=== PATIENT | female | born 1985 | race African-American/Black ===

== ENCOUNTER 2017-12-06 12:14 | Inpatient (IN) | payer MEDICAID, OTHER ==
[~2017-12-06] VITALS: Ht 160 cm; Wt 64.0 kg
[~2017-12-06 12:14] MED LIST: CEPH500C3 PO
--- NOTE | 2017-12-06 12:43 | HHI.HP ---
HPI Chief Complaint Sent from Clinic for Demise Date Seen: Dec 06, 2017 Travel History International Travel<30 Days: No Contact w/Intl Traveler<30Days: No History of Present Illness HPI Ms. Chanel is a 32 y/o presenting at 19 weeks by LMP for possible demise. Patient was receiving medical care from Aretha Coker with an uncomplicated until this week. She states that she had an in office ultrasound that showed no activity on 12/05/17 and measurements consistent with a 16 week fetus. She was then encouraged to present to the OB floor for further management. She denies any activity, vaginal bleeding, trauma, or loss of fluid. She also denies any fevers, chills, SOB, chest pain, NVD, ABD pain, edema, calf tenderness or any other type of pain. She does state that over the last week she has been fighting a cold, but otherwise has no issues. Weeks Gestation: 24 Para: 5 : 8 History Past Medical History Medical History: Denies Significant Hx Obstetric History Obstetric History -1st = elective D&C at <12 weeks gestation -2nd = uncomplicated full term -3rd = elective D&C at <12 weeks gestation -4th - 7th pregnancies = uncomplicated full term -8th = reports has been uncomplicated thus far Family History Narrative Family History -Mother: HTN, DM -Father: No reported MHx -Children: No MHx reported Social History Alcohol Use: No Tobacco Use: No Substance Abuse: No Allergies-Medications (Allergen,Severity, Reaction): Coded Allergies: No Known Allergies (Verified Allergy, Unknown, 12/06/17) Home Meds Active Scripts Cephalexin (Keflex) 500 Mg Cap, 500 MG PO Q6, #28 CAP Prov:Manas Chaparro MD 07/03/15 Review of Systems Except as stated in HPI: all other systems reviewed are Neg (Per HPI) Physical Exam Narrative GENERAL: Well-nourished, well-developed patient. SKIN: Warm and dry. HEAD: Normocephalic and atraumatic. EYES: No scleral icterus. No injection or drainage. ENT: No nasal drainage noted. Mucous membranes pink. Airway patent. NECK: Supple, trachea midline. No JVD. CARDIOVASCULAR: Regular rate and rhythm without murmurs, gallops, or rubs. RESPIRATORY: Breath sounds equal bilaterally. No accessory muscle use. ABDOMEN/GI: Abdomen soft, non-tender, bowel sounds present, no rebound, no guarding Gravid to 16 weeks size FHT's: No HT appreciated on bedside US EXTREMITIES: No cyanosis or edema. BACK: Nontender without obvious deformity. No CVA tenderness. NEUROLOGICAL: Awake and alert. Motor and sensory grossly within normal limits. Five out of 5 muscle strength in all muscle groups. Normal speech. Caprini VTE Risk Assessment Caprini VTE Risk Assessment: Mod/High Risk (score >= 2) Caprini Risk Assessment Model Point Value = 1 Point Value = 2 Point Value = 3 Point Value = 5 Age 41-60 Minor surgery BMI > 25 kg/m2 Swollen legs Varicose veins or History of unexplained or recurrent spontaneous Oral contraceptives or hormone replacement Sepsis (< 1 month) Serious lung disease, including pneumonia (< 1 month) Abnormal pulmonary function Acute myocardial infarction Congestive heart failure (< 1 month) History of inflammatory bowel disease Medical patient at bed rest Age 61-74 Arthroscopic surgery Major open surgery (> 45 min) Laparoscopic surgery (> 45 min) Malignancy Confined to bed (> 72 hours) Immobilizing plaster cast Central venous access Age >= 75 History of VTE Family history of VTE Factor V Leiden Prothrombin [id number] Lupus anticoagulant Anticardiolipin antibodies Elevated serum homocysteine Heparin-induced thrombocytopenia Other congenital or acquired thrombophilia Stroke (< 1 month) Elective arthroplasty Hip, pelvis, or leg fracture Acute spinal cord injury (< 1 month) Prophylaxis Regimen Total Risk Factor Score Risk Level Prophylaxis Regimen 0-1 Low Early ambulation 2 Moderate Order ONE of the following: *Sequential Compression Device (SCD) *Heparin 5000 units SQ BID 3-4 Higher Order ONE of the following medications: *Heparin 5000 units SQ TID *Enoxaparin/Lovenox 40 mg SQ daily (WT < 150 kg, CrCl > 30 mL/min) *Enoxaparin/Lovenox 30 mg SQ daily (WT < 150 kg, CrCl > 10-29 mL/min) *Enoxaparin/Lovenox 30 mg SQ BID (WT < 150 kg, CrCl > 30 mL/min) AND/OR *Sequential Compression Device (SCD) 5 or more Highest Order ONE of the following medications: *Heparin 5000 units SQ TID (Preferred with Epidurals) *Enoxaparin/Lovenox 40 mg SQ daily (WT < 150 kg, CrCl > 30 mL/min) *Enoxaparin/Lovenox 30 mg SQ daily (WT < 150 kg, CrCl > 10-29 mL/min) *Enoxaparin/Lovenox 30 mg SQ BID (WT < 150 kg, CrCl > 30 mL/min) AND *Sequential Compression Device (SCD) Data Data Vital Signs Reviewed: Yes Orders Orders Admit To Inpatient (12/06/17 ) Code Status (12/06/17 12:32) Vital Signs (Adult) Q4H (12/06/17 12:32) Activity Oob Ad Teresa (12/06/17 12:32) Sodium Chloride 0.9% Flush (Ns Flush) (12/06/17 12:45) Sodium Chloride 0.9% Flush (Ns Flush) (12/06/17 21:00) Acetaminophen (Tylenol) (12/06/17 12:45) Morphine Inj (Morphine Inj) (12/06/17 12:45) Morphine Inj (Morphine Inj) (12/06/17 12:45) Ondansetron Inj (Zofran Inj) (12/06/17 12:45) Diphenoxylate/Atropine Tab (Lomotil Tab) (12/06/17 12:45) Complete Blood Count With Diff (12/06/17 12:32) Antibody Screen (12/06/17 12:32) Prothrombin Time / Inr (Pt) (12/06/17 12:32) Act Partial Throm Time (Ptt) (12/06/17 12:32) Drug Screen, Random Urine (12/06/17 12:32) Nanette Oliveros ( Hgb) (12/06/17 12:32) Inpatient Certification (12/06/17 ) Specimen To Be Collected PRN (12/06/17 12:32) Docusate Sodium-Senna (Emiliana-Colace) (12/06/17 12:45) Assessment/Plan Problem List: (1) demise before 22 weeks with retention of fetus ICD Codes: O36.4XX0 - Maternal care for intrauterine , not applicable or unspecified Status: Acute Assessment and Plan Ms. Chanel is a 32 y/o presenting at 19 weeks by LMP with demise. 1. IUP at 24 weeks per LMP -Continue routine antepartum care 2. demise -Office US shows 16 week fetus without cardiac activity -Bedside US confirms no cardiac activity -Patient agreeable with plan for induction -Plan to start with Cytotec 100mg buccally, reassess in 4 hours SDW: Dr. Marie Discharge Planning Pending clinical course Joni Sun MD R2 Dec 06, 2017 12:43
[2017-12-06] MEDS ORDERED: DIPHENOXYLATE/ATROPINE 2.5 MG/0.025 MG TAB PO PRN (12:45)
[2017-12-06] MEDS ORDERED: MORPHINE SULFATE 4 MG/ML INJ IV PUSH PRN (12:45)
[2017-12-06] MEDS ORDERED: ACETAMINOPHEN 325 MG TAB PO PRN (12:45)
[2017-12-06] MEDS ORDERED: DOCUSATE SODIUM 50 MG/SENNA 8.6 MG TAB PO PRN (12:45)
[2017-12-06] MEDS ORDERED: SODIUM CHLORIDE 0.9% FLUSH 10 ML FLUSH IV FLUSH PRN (12:45)
[2017-12-06] MEDS ORDERED: ONDANSETRON HCL 4 MG/2 ML VIAL IV PUSH PRN (12:45)
[2017-12-06] MEDS ORDERED: MORPHINE SULFATE 10 MG/ML INJ IV PUSH PRN (12:45)
[2017-12-06] MEDS ORDERED: MISOPROSTOL 100 MCG TAB PO ONE (13:30)
[2017-12-06 14:15] LABS: AUTOMATED NEUTROPHIL # 8.7 TH/MM3 (1.8-7.7); BASOPHIL % 0.4 % (0.0-2.0); EOSINOPHIL # 0.1 TH/MM3 (0-0.4); EOSINOPHIL % 0.9 % (0.0-4.0); HEMATOCRIT 36.4 % (35.0-46.0); HEMOGLOBIN 12.1 GM/DL (11.6-15.3); LYMPH % 18.1 % (9.0-44.0); LYMPHOCYTE # 2.1 TH/MM3 (1.0-4.8); MEAN CELL VOLUME 79.8 FL (80.0-100.0); MEAN CORPUSCULAR HEMOGLOBIN 26.5 PG (27.0-34.0); MEAN CORPUSCULAR HGB CONC 33.2 % (32.0-36.0); MEAN PLATELET VOLUME 8.2 FL (7.0-11.0); MONO % 7.1 % (0.0-8.0); MONOCYTE # 0.8 TH/MM3 (0-0.9); NEUT % 73.5 % (16.0-70.0); PLATELET COUNT 265 TH/MM3 (150-450); RED BLOOD COUNT 4.56 MIL/MM3 (4.00-5.30); RED CELL DISTRIBUTION WIDTH 14.7 % (11.6-17.2); WHITE BLOOD COUNT 11.8 TH/MM3 (4.0-11.0)
[2017-12-06 14:40] LABS: PROTHROMBIN TIME - PATIENT 10.1 SEC (9.8-11.6)
[2017-12-06 16:58] VITALS: BP 121/71; PULSE 100
[2017-12-06 16:59] VITALS: RESP 18; TEMP 99.3
[2017-12-06] MEDS ORDERED: MISOPROSTOL 200 MCG TAB ONE (17:58)
[2017-12-06] MEDS ORDERED: MISOPROSTOL 200 MCG TAB PO ONE (18:15)
[2017-12-06 19:23] VITALS: BP 119/72; PULSE 92
--- NOTE | 2017-12-06 20:22 | PD.LABORPN ---
Subjective Subjective pt. in bed. states feels irreg ctxs. no vb/lof. Objective Vital Signs Vital Signs Date Time Temp Pulse Resp B/P (MAP) Pulse Ox O2 Delivery O2 Flow Rate FiO2 12/06/17 19:23 92 119/72 (88) 12/06/17 16:59 18 12/06/17 16:59 99.3 12/06/17 16:58 100 121/71 (88) Objective Pelvic Exam: Uterine Contractions: irreg Weeks Gestation: 24 Assessment/Plan Problem List: (1) demise before 22 weeks with retention of fetus ICD Codes: O36.4XX0 - Maternal care for intrauterine , not applicable or unspecified Status: Acute Plan: pt. s/p 100mcg and 1 dose of 200mcg of cytotec. will give 2nd 200mcg dose cytotec. will continue to monitor closely. iv analgesics as needed. Assessment and Plan pt. s/p 100mcg and 1 dose of 200mcg of cytotec. will give 2nd 200mcg dose cytotec. will continue to monitor closely. iv analgesics as needed. Marshall Marie Jr., MD Dec 06, 2017 20:22
[2017-12-06] MEDS ORDERED: MORPHINE SULFATE 4 MG/ML INJ IV ONE (20:34)
[2017-12-06 21:00] VITALS: RESP 18
[2017-12-06] MEDS: SODIUM CHLORIDE 0.9% FLUSH 10 ML FLUSH IV FLUSH SCH (21:00)
[2017-12-06] MEDS ORDERED: PENICILLIN G POT 5,000,000 UNITS/NS 100 ML(Mini-Bag Plus) IV ONE ×2 (22:45)
[2017-12-06 23:12] VITALS: TEMP 98.7
[2017-12-07] VITALS (27 sets, daily range): BP systolic 72–117; BP diastolic 35–77; PULSE 62–121; RESP 16–18; TEMP 98.3–98.9; O2SAT 99–100
[2017-12-07] MEDS ORDERED: OXYTOCIN 30 UNITS-500ML PREMIX 500 ML ONE (00:50)
[2017-12-07] MEDS ORDERED: PENICILLIN G POT 2,500,000 UNITS/NS 100 ML IV SCH ×2 (03:00)
[2017-12-07] MEDS ORDERED: METHYLERGONOVINE MALEATE 0.2 MG/ML VIAL ONE (06:29)
[2017-12-07] MEDS ORDERED: MIDAZOLAM HCL 2 MG/2 ML VIAL ONE (07:25)
[2017-12-07] MEDS ORDERED: OXYTOCIN IV SCH ×5 (07:30→09:30)
[2017-12-07] MEDS ORDERED: DEXTROSE 5% IV SCH ×5 (07:30→09:30)
[2017-12-07] MEDS ORDERED: LACTATED RING IV SCH ×5 (07:30→09:30)
[2017-12-07] MEDS ORDERED: KETOROLAC TROMETHAMINE 30 MG/ML (IVP) VIAL IV PUSH PRN ×2 (07:45)
[2017-12-07] MEDS ORDERED: HYDROmorphone HCL PF 2 MG/ML VIAL IV PUSH PRN ×2 (07:45→08:00)
[2017-12-07] MEDS ORDERED: ONDANSETRON HCL 4 MG/2 ML VIAL IV PUSH PRN (07:45)
[2017-12-07 07:55] LABS: AUTOMATED NEUTROPHIL # 10.2 TH/MM3 (1.8-7.7); BASOPHIL % 0.3 % (0.0-2.0); EOSINOPHIL # 0.1 TH/MM3 (0-0.4); EOSINOPHIL % 0.9 % (0.0-4.0); HEMOGLOBIN 8.5 GM/DL (11.6-15.3); LYMPHOCYTE # 1.6 TH/MM3 (1.0-4.8); MEAN CELL VOLUME 80.4 FL (80.0-100.0); MEAN CORPUSCULAR HEMOGLOBIN 26.3 PG (27.0-34.0); MEAN CORPUSCULAR HGB CONC 32.7 % (32.0-36.0); MEAN PLATELET VOLUME 7.9 FL (7.0-11.0); MONO % 4.6 % (0.0-8.0); MONOCYTE # 0.6 TH/MM3 (0-0.9); NEUT % 81.2 % (16.0-70.0); PLATELET COUNT 235 TH/MM3 (150-450); RED BLOOD COUNT 3.23 MIL/MM3 (4.00-5.30); RED CELL DISTRIBUTION WIDTH 14.8 % (11.6-17.2); WHITE BLOOD COUNT 12.5 TH/MM3 (4.0-11.0)
[2017-12-07] MEDS ORDERED: DO NOT ADM ANY ANTICOAGULANT DRUGS PRN (08:00)
[2017-12-07] MEDS ORDERED: oxyCODONE/ACETAMINOPHEN 5 MG/325 MG TAB PO PRN ×2 (08:00)
[2017-12-07] MEDS: SODIUM CHLORIDE 0.9% FLUSH 10 ML FLUSH IV FLUSH SCH (09:00)
[2017-12-07] MEDS ORDERED: PROPOFOL 200 MG/20 ML AMP IV ONE (12:00)
[2017-12-07] MEDS ORDERED: PHENYLEPH/NS 1000 MCG/10 ML SYR IV ONE (12:00)
[2017-12-07] MEDS ORDERED: SUCCINYLCHOLINE CHLORIDE 200 MG/10 ML VIAL IV ONE (12:00)
[2017-12-07] MEDS ORDERED: KETOROLAC TROMETHAMINE 30 MG/ML (IVP) VIAL IV PUSH ONE (12:00)
[2017-12-07] MEDS ORDERED: DEXAMETHASONE SOD PHOS 4 MG/ML VIAL IV ONE (12:00)
[2017-12-07] MEDS ORDERED: ONDANSETRON HCL 4 MG/2 ML VIAL IV ONE (12:00)
[2017-12-07] MEDS ORDERED: LIDOCAINE HCL 1% PF 5 ML SYRINGE OTHER ONE (12:00)
[2017-12-07] MEDS ORDERED: ROCURONIUM INJ 50 MG/5 ML SYRINGE IV PUSH ONE (12:00)
[2017-12-07 13:28] LABS: BASOPHIL % 0.2 % (0.0-2.0); EOSINOPHIL % 0.1 % (0.0-4.0); HEMATOCRIT 25.4 % (35.0-46.0); HEMOGLOBIN 8.4 GM/DL (11.6-15.3); LYMPH % 6.1 % (9.0-44.0); LYMPHOCYTE # 0.9 TH/MM3 (1.0-4.8); MEAN CELL VOLUME 80.1 FL (80.0-100.0); MEAN CORPUSCULAR HEMOGLOBIN 26.5 PG (27.0-34.0); MEAN CORPUSCULAR HGB CONC 33.1 % (32.0-36.0); MONO % 2.7 % (0.0-8.0); MONOCYTE # 0.4 TH/MM3 (0-0.9); NEUT % 90.9 % (16.0-70.0); PLATELET COUNT 237 TH/MM3 (150-450); RED BLOOD COUNT 3.17 MIL/MM3 (4.00-5.30); RED CELL DISTRIBUTION WIDTH 14.4 % (11.6-17.2); WHITE BLOOD COUNT 15.4 TH/MM3 (4.0-11.0)
[2017-12-08] VITALS (20 sets, daily range): BP systolic 96–127; BP diastolic 43–67; PULSE 89–116; RESP 16–18; TEMP 97.9–98.7
[2017-12-08 07:25] LABS: AUTOMATED NEUTROPHIL # 10.1 TH/MM3 (1.8-7.7); BASOPHIL # 0.1 TH/MM3 (0-0.2); BASOPHIL % 0.5 % (0.0-2.0); EOSINOPHIL # 0.2 TH/MM3 (0-0.4); EOSINOPHIL % 1.5 % (0.0-4.0); HEMATOCRIT 22.1 % (35.0-46.0); HEMOGLOBIN 7.5 GM/DL (11.6-15.3); LYMPH % 20.5 % (9.0-44.0); LYMPHOCYTE # 2.9 TH/MM3 (1.0-4.8); MEAN CELL VOLUME 79.7 FL (80.0-100.0); MEAN CORPUSCULAR HEMOGLOBIN 26.9 PG (27.0-34.0); MEAN CORPUSCULAR HGB CONC 33.8 % (32.0-36.0); MEAN PLATELET VOLUME 7.7 FL (7.0-11.0); MONO % 6.4 % (0.0-8.0); MONOCYTE # 0.9 TH/MM3 (0-0.9); NEUT % 71.1 % (16.0-70.0); PLATELET COUNT 206 TH/MM3 (150-450); RED BLOOD COUNT 2.77 MIL/MM3 (4.00-5.30); RED CELL DISTRIBUTION WIDTH 14.4 % (11.6-17.2); WHITE BLOOD COUNT 14.1 TH/MM3 (4.0-11.0)
[2017-12-08 07:45] LABS: BICARBONATE 24.4 MEQ/L (21.0-32.0); CALCIUM 7.8 MG/DL (8.5-10.1); CREATININE 0.51 MG/DL (0.50-1.00)
[2017-12-08] MEDS ORDERED: PERI PO (09:02)
[2017-12-08] MEDS ORDERED: IBUP-232 PO (09:02)
[2017-12-08] MEDS ORDERED: FERR325T18 PO (09:02)
--- NOTE | 2017-12-08 09:03 | HHI.DCPOC ---
Discharge Care Plan Diagnosis: (1) demise before 22 weeks with retention of fetus Report Symptoms to Your Doctor -Temperature above 100.5 degrees -Redness, of incision or excessive or foul smelling drainage -Unusual pain or calf pain -Increased vaginal bleeding -Painful or difficulty urinating -Feelings of extreme sadness or anxiety after 2 weeks Goals to Promote Your Health * To prevent worsening of your condition and complications * To maintain your health at the optimal level Directions to Meet Your Goals Take your medications as prescribed Follow your dietary instruction Follow activity as directed Ensure plenty of rest for recovery Drink fluids for hydration Keep your appointments as scheduled Take your immunizations and boosters as scheduled If your symptoms worsen call your PCP, if no PCP go to Urgent Care Center or Emergency Room Smoking is Dangerous to Your Health. Avoid second hand smoke Call the 24-hour crisis hotline for domestic abuse at Joni Sun MD R2 Dec 08, 2017 09:03
--- NOTE | 2017-12-08 09:16 | HHI.OB ---
Subjective Post Day: 1 Remarks Patient seen and examined this morning. No acute events overnight. Today patient reports she feels "groggy" with a headache. She states that once she started walking around this morning, she started to feel bad and her vaginal bleeding had increased. She denies any visual changes, chest pain, SOB, NVD, or calf tenderness. She states that she would like to be discharged home, but is concerned she is starting to feel worse. Objective Vitals/I&O Vital Signs Date Time Temp Pulse Resp B/P (MAP) Pulse Ox O2 Delivery O2 Flow Rate FiO2 12/08/17 08:06 98.0 12/08/17 08:00 95 122/59 (80) 12/08/17 07:00 98.5 16 12/08/17 06:28 89 103/57 (72) 12/08/17 01:56 93 106/62 (77) 12/07/17 22:29 104 114/64 (81) 12/07/17 16:15 16 12/07/17 16:15 116 113/66 (82) 12/07/17 16:14 98.9 12/07/17 13:00 100 12/07/17 12:56 121 111/65 (80) 12/07/17 12:56 98.6 18 12/07/17 09:43 102 107/62 (77) Objective Remarks GENERAL: Well-nourished, well-developed patient. CARDIOVASCULAR: Tachycardic rate and rhythm without murmurs, gallops, or rubs. RESPIRATORY: Breath sounds equal bilaterally. No accessory muscle use. ABDOMEN/GI: Abdomen soft, non-tender. Fundus: Firm, non-tender at umbilicus. GENITOURINARY: Light to moderate bleeding. EXTREMITIES: No cyanosis or edema, non-tender, without signs of DVT. Medications and IVs Current Medications Medications (Trade) Dose Ordered Sig/True Route Start Time Stop Time Status Last Admin (NS Flush) 2 ml UNSCH PRN IV FLUSH 12/06/17 12:45 (NS Flush) 2 ml BID IV FLUSH 12/06/17 21:00 12/06/17 21:00 (Tylenol) 650 mg Q4H PRN PO 12/06/17 12:45 (Lomotil Tab) 2 tab Q4H PRN PO 12/06/17 12:45 (Emiliana-Colace) 1 tab BID PRN PO 12/06/17 12:45 (Toradol Inj) 30 mg Q6H PRN IV PUSH 12/07/17 07:45 12/12/17 07:44 (Zofran Inj) 4 mg Q4H PRN IV PUSH 12/07/17 07:45 (Dilaudid Pf Inj) 1 mg Q2H PRN IV PUSH 12/07/17 08:00 (Percocet 5-325 Mg) 1 tab Q4H PRN PO 12/07/17 08:00 (Percocet 5-325 Mg) 2 tab Q4H PRN PO 12/07/17 08:00 Assessment/Plan Problem List: (1) demise before 22 weeks with retention of fetus ICD Codes: O36.4XX0 - Maternal care for intrauterine , not applicable or unspecified Status: Acute Assessment and Plan Ms. Chanel is a 32 y/o presenting at 19 weeks by LMP with demise. 1. demise -Office US shows 16 week fetus without cardiac activity -Bedside US confirms no cardiac activity -Fetus passed 12/07/17 -Taken to OR for continued vaginal bleeding on 12/07/17 2. Post- anemia -H/H today down to 7.5/22.1 -Due to H/H dropping and patient being symptomatic, plan to transfuse 2 units PRBC -Patient desires discharge after transfusion pending clinical course SDW: Dr. Osuna Discharge Planning Pending clinical course after transfusion Joni Sun MD R2 Dec 08, 2017 09:16
[2017-12-08] MEDS ORDERED: ACETAMINOPHEN 325 MG TAB PO PRN (09:45)
[2017-12-08] MEDS ORDERED: SODIUM CHLOR 0.9% 250 ML INJ 250 ML IV ONE (09:45)
[2017-12-08] MEDS ORDERED: diphenhydrAMINE HCL 25 MG CAP PO PRN (09:45)
[2017-12-08 17:03] LABS: HEMATOCRIT 29.4 % (35.0-46.0); HEMOGLOBIN 10.1 GM/DL (11.6-15.3); MEAN CELL VOLUME 82.1 FL (80.0-100.0); MEAN CORPUSCULAR HEMOGLOBIN 28.2 PG (27.0-34.0); MEAN CORPUSCULAR HGB CONC 34.4 % (32.0-36.0); MEAN PLATELET VOLUME 7.9 FL (7.0-11.0); PLATELET COUNT 235 TH/MM3 (150-450); RED BLOOD COUNT 3.59 MIL/MM3 (4.00-5.30); RED CELL DISTRIBUTION WIDTH 15.1 % (11.6-17.2); WHITE BLOOD COUNT 13.6 TH/MM3 (4.0-11.0)
--- NOTE | 2017-12-10 12:30 | PD.OP ---
Operative Report Date of Surgery: Dec 07, 2017 Preoperative Diagnosis: (1) 19 weeks gestation of (2) Retained placenta with hemorrhage, condition (3) demise before 22 weeks with retention of fetus pt. present w/ iufd @ 19 weeks. undergo iol 2/2 demise. deliver fetus w/ o diff. pt. started w/ pitocin for delivery of placenta. placenta not deliver , and pt. have large amount of bleeding and decreasing bp. decision made for surgical management. demise delivered w/ apgars 0/0. Postoperative Diagnosis: (1) 19 weeks gestation of (2) Retained placenta with hemorrhage, condition (3) demise before 22 weeks with retention of fetus Procedure: in dorsal lithotomy position. weighted spec placed in vagina. placenta partially visualized fronm the cervix. ring forceps used to remove visual part of placenta. banjo curette used in multiple passes to remove rest of the placenta w/o diff. excellent hemostasis noted. sponge, lap and needle counts correct x 2. pt. awakened and transferred to pacu in stable condition. Anesthesia: general Surgeon: Marshall Marie Pelt Inspector(s): staff Operation and Findings: examination under anesthesia, d&c. Marshall Marie Jr., MD Dec 10, 2017 12:30
== END 2017-12-08 18:13 | disposition home or self-care (01) | DRG 770 ==
LOC: OBSVTOIN 12:14 → H2EA 12:14 → H2EB 12-07 06:51
PROVIDERS: ADMIT Obstetrics & Gynecology; ATTEND Obstetrics & Gynecology
PROC: 3E033VJ Introduction of Other Hormone into Peripheral Vein, Percutaneous Approach (ICD-10-PCS; 2017-12-04)
PROC: 10D17Z9 Manual Extraction of Products of Conception, Retained, Via Natural or Artificial Opening (ICD-10-PCS; principal; 2017-12-07 06:36)
PROC: 30233N1 Transfusion of Nonautologous Red Blood Cells into Peripheral Vein, Percutaneous Approach (ICD-10-PCS; 2017-12-08)
DX: O02.1 Missed abortion (principal); O72.0 Third-stage hemorrhage; D64.9 Anemia, unspecified; O90.81 Anemia of the puerperium; Z3A.19 19 weeks gestation of pregnancy
CPT/HCPCS: 36430; 76815; 80048; 80307; 85025; 85027; 85610; 85730; 86850; 86900; 86901; 86920; 88305; J0330; J1100; J1885; J2210; J2250; J2270; J2370; J2405; J2540; J2590; J3010; J7121; P9016